=== PATIENT | female | born 2000 | race Caucasian/White ===

== ENCOUNTER 2020-06-27 16:09 | Outpatient (CLI) | payer BC, SELFPAY ==
--- NOTE | ~2020-06-27 | XR_ITS ---
XR wrist LT min 3V 06/27/2020 16:43 INDICATION: Left wrist pain PROCEDURE: 4 views left wrist COMPARISON: No prior studies for comparison. FINDINGS: Fracture, dislocation or subluxation is not identified. The soft tissues appear within norm al limits. No foreign bodies are identified. IMPRESSION: 1: NO ACUTE BONE OR JOINT ABNORMALITY IDENTIFIED. Reviewed, dictated and finalized at location A.
== END 2020-06-27 16:10 | disposition home or self-care (01) ==
PROVIDERS: Visit Provider Pediatrics
DX: M25.532 Pain in left wrist (principal)
CPT/HCPCS: 73110

== ENCOUNTER 2021-08-09 17:43 | Emergency (ER) | payer BC, SELFPAY ==
[2021-08-09 17:50] VITALS: BP 137/77; PULSE 103; RESP 16; TEMP 36.2; O2SAT 99
--- NOTE | 2021-08-09 18:15 | ED.EAR ---
HPI - Ear Problem General Chief complaint: Ear Stated complaint: earache Time Seen by Provider: 08/09/21 18:05 Source: patient Mode of arrival: ambulatory Limitations: no limitations History of Present Illness HPI Narrative: 20-year-old female who presents to [facility] with complaints of sinus drainage for 1-1/2 weeks as well as feeling super stuffy, cough with ear pain starting on Saturday. Patient denies any drainage from her ear or any decreased hearing admits to pain to the left ear. Patient reports that she has been taking Ibuprofen for her discomfort. Patient denies any known fevers chills or sweats, has had Covid vaccinations and also flu shot. 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 MD Complaint: ear pain Location: left ear Duration: constant Severity: moderate Discharge from ear: Reports no Treatment prior to arrival: oral analgesic Related Data Allergies Allergy/AdvReac Type Severity Reaction Status Date / Time No Known Allergies Allergy Verified 12/09/20 11:58 Review of Systems Review of Systems: CONSTITUTIONAL: Denies fever, chills, or sweats. EYES: Denies visual changes, redness, or discharge. ENT: Positive rhinorrhea, congestion,no sore throat, left otalgia. CARDIOVASCULAR: Denies chest pain, palpitations, or edema. RESPIRATORY: Denies any acute cough or dyspnea. GASTROINTESTINAL: Denies abdominal pain, nausea, vomiting, or diarrhea. GENITOURINARY: Denies dysuria or hematuria. SKIN: Denies rash or itching. MUSCULOSKELETAL: Denies back pain, joint pain, or myalgia. NEUROLOGIC: Denies headache, numbness, or weakness. PSYCHIATRIC: Denies anxiety or depression. [facility] Past Medical History Medical History Anxiety Family History Family History Mother Depression Grandparent Alcoholism Hypertension Depression Thyroid disorder Social History Social History Smoking status: Never smoker Alcohol intake: never Substance use: never Gender identity (if verbalized by the patient): Female Comments At time of signature, agree with nursing past medical, surgical, social and family history. There is no relevant family history pertinent to the presenting complaint Exam Narrative: GENERAL: Well-appearing, well-nourished, and in no acute distress. HEAD: Normocephalic, atraumatic. EYES: PERRLA and EOMI. ENT: Nares red with clear rhinorrhea no epistaxis. Mucous membranes moist.TM right ear normal with good light reflex, left ear TM red and bulging, throat pink with no lesions or exudates no tonsil swelling NECK: Supple.no lymphadenopathy CHEST: Clear to auscultation. No respiratory distress.SAO2 99% on room air HEART: Regular rate and rhythm. No murmur heard. Normal peripheral pulses. ABDOMEN: Soft, nontender, nondistended, normal active bowel sounds. EXTREMITIES: Normal range of motion. No edema. SKIN: Warm, dry, no rash. NEURO: No focal deficits. Alert and oriented x3. Course Course Level of Care: Express Care Visit Vital Signs Vital signs: Vital Signs Temperature 36.2 C L 08/09/21 17:50 Pulse Rate 103 H 08/09/21 17:50 Respiratory Rate 16 08/09/21 17:50 Blood Pressure 137/77 08/09/21 17:50 Pulse Oximetry 99 08/09/21 17:50 Temperature 36.2 C L 08/09/21 17:50 Pulse Rate 103 H 08/09/21 17:50 Respiratory Rate 16 08/09/21 17:50 Blood Pressure 137/77 08/09/21 17:50 Pulse Oximetry 99 08/09/21 17:50 Medical Decision Making Differential Diagnosis Differential Diagnosis: otitis media, URI, sinusitis, pharyngitid, viral syndrome. Medical Records Medical records reviewed: Yes I reviewed the external patient's medical records. Vital Signs Vital Signs: Vital Signs Temperature 36.2 C L 08/09/21 17:50 Pulse Rate 103 H 08/09/21 17:50 Re
== END 2021-08-09 18:27 | disposition home or self-care (01) ==
PROVIDERS: Emergency Provider Registered Nurse; PCP Internal Medicine
DX: H66.92 Otitis media, unspecified, left ear (principal); J06.9 Acute upper respiratory infection, unspecified
CPT/HCPCS: 99213; G0463

== ENCOUNTER 2021-11-19 13:50 | Emergency (ER) | payer BC, SELFPAY ==
--- NOTE | 2021-11-19 13:55 | ED.SKABFB ---
HPI - Skin/Abscess/Foreign Bdy General Chief complaint: Skin/Abscess/Foreign Body Stated complaint: RASH Time Seen by Provider: 11/19/21 14:16 Source: patient and RN notes reviewed Mode of arrival: ambulatory Limitations: no limitations History of Present Illness HPI narrative: 21-year-old female presents concern for rash on near her right elbow. Reports an itchy rash that has been there for more than several days. She denies any other rash. Denies any exposure to new products, foods, medicines, plants. She denies swollen lips, swollen tongue, trouble breathing MD complaint: rash Related Data Allergies Allergy/AdvReac Type Severity Reaction Status Date / Time No Known Allergies Allergy Verified 11/19/21 14:15 Review of Systems Review of Systems: CONSTITUTIONAL: Denies malaise, chills, sweats, or fever. EYES: Denies redness, or discharge. ENT: Denies rhinorrhea, congestion, swollen lips, swollen tongue CARDIOVASCULAR: Denies chest pain, palpitations, or edema. RESPIRATORY: Denies cough or dyspnea. SKIN: Reports itchy rash to the right elbow All systems reviewed & are unremarkable except as noted in HPI and below PMFSH Past Medical History Medical History Anxiety Family History Family History Mother Depression Grandparent Alcoholism Hypertension Depression Thyroid disorder Social History Social History Smoking status: Never smoker Alcohol intake: never Substance use: never Gender identity (if verbalized by the patient): Female Comments At time of signature, agree with nursing past medical, surgical, social and family history. There is no relevant family history pertinent to the presenting complaint Exam Narrative: GENERAL: Well-appearing, well-nourished, and in no acute distress. HEAD: Normocephalic, atraumatic. EYES: PERRLA, conjunctivae clear, and EOMI. ENT: Mucous membranes moist. NECK: Supple. No lymphadenopathy CHEST: Clear to auscultation. No respiratory distress. HEART: Regular rate and rhythm. SKIN: Warm, dry. 1.5 cm diameter annular erythematous plaque noted to the right elbow area with 1 small satellite lesion NEURO: Alert and oriented x3. PSYCH: Normal mood and affect Course Course Emergency Course: Patient is aware of diagnosis, understands and agrees to treatment plan. Anticipatory guidance given. Patient agrees to follow-up as directed and is aware of reasons to seek care at the emergency department. Portions of this record may have been created with voice recognition software Level of Care: Express Care Visit Vital Signs Vital signs: Reviewed. MDM - Skin/Abscess/Foreign Bdy MDM Narrative Medical decision making narrative: Does not appear at this time to be erythema multiforme, bullous, SJS, TEN; no evidence at this time to suggest RMSF, endocarditis or Lyme disease; patient looks well, nontoxic and is tolerating oral intake; no neurologic signs or symptoms; no headache, photophobia or neck pain; afebrile; appropriate for initial outpatient treatment; discussed the importance of follow-up, patient agrees; question, viral exanthema, contact dermatitis, allergic dermatitis, eczema, urticaria, tinea. No soft palate or uvula edema, no tongue, lip edema or other mucosal involvement, no respiratory compromise, no stridor, no wheezing, no wheezing, no history of syncope, no hypotension, no nausea, vomiting, or diarrhea. Instructed patient to go to nearest ER immediately for any worsening symptoms including but not limited to: fever, spreading rash, pain, sore throat, headache, dizziness, chest pain, trouble breathing, or any symptoms concerning to the patient. Critical Care Time Critical Care Time Critical Care Time: No Discharge Plan Discharge Clinical Impression: Tinea corporis Patient Disposit
[2021-11-19 13:59] VITALS: BP 149/86; PULSE 96; RESP 16; TEMP 37.4; O2SAT 99
== END 2021-11-19 14:16 | disposition home or self-care (01) ==
PROVIDERS: Emergency Provider Nurse Practitioner
DX: B35.4 Tinea corporis (principal)
CPT/HCPCS: 99213; G0463

== ENCOUNTER 2021-11-27 10:57 | Emergency (ER) | payer BC, SELFPAY ==
[2021-11-27 11:04] VITALS: BP 139/85; PULSE 91; RESP 16; TEMP 36.1; O2SAT 99
--- NOTE | 2021-11-27 11:17 | ED.SKABFB ---
HPI - Skin/Abscess/Foreign Bdy General Chief complaint: Skin/Abscess/Foreign Body Stated complaint: body rash Time Seen by Provider: 11/27/21 11:20 Source: patient and RN notes reviewed Mode of arrival: ambulatory Limitations: no limitations History of Present Illness HPI narrative: 21-year-old female presents with an itchy spreading rash. She reports she is currently using antifungal cream for rash on her left elbow. She reports that that rash is improving. However, she reports the rash has spread to both of her thighs. She reports the rash in that area seems worse than the first rash. There is multiple areas and she had a blister with fluid in it. Reports she has been using bandages, however the bandages are irritating her skin. She reports her insurance would not cover the prescription antifungal cream so she has been using an [id number] MD complaint: rash Related Data Allergies Allergy/AdvReac Type Severity Reaction Status Date / Time No Known Allergies Allergy Verified 11/27/21 11:06 Review of Systems Review of Systems: CONSTITUTIONAL: Denies malaise, chills, sweats, or fever. EYES: Denies redness, or discharge. ENT: Denies rhinorrhea, congestion, swollen lips, swollen tongue CARDIOVASCULAR: Denies chest pain, palpitations, or edema. RESPIRATORY: Denies cough or dyspnea. GASTROINTESTINAL: Denies abdominal pain, nausea, vomiting SKIN: Reports itchy rash MUSCULOSKELETAL: Denies joint pain or myalgia. NEUROLOGIC: Denies headache. All systems reviewed & are unremarkable except as noted in HPI and below PMFSH Past Medical History Medical History Anxiety Family History Family History Mother Depression Grandparent Alcoholism Hypertension Depression Thyroid disorder Social History Social History Smoking status: Never smoker Alcohol intake: never Substance use: never Gender identity (if verbalized by the patient): Female Comments At time of signature, agree with nursing past medical, surgical, social and family history. There is no relevant family history pertinent to the presenting complaint Exam Narrative: GENERAL: Well-appearing, well-nourished, and in no acute distress. HEAD: Normocephalic, atraumatic. EYES: PERRLA, conjunctivae clear ENT: Mucous membranes moist. NECK: Supple. No lymphadenopathy CHEST: Clear to auscultation. No respiratory distress. HEART: Regular rate and rhythm. SKIN: Warm, dry. Small annular pink patch of plaque on the left elbow that is resolving from previous visit. A patch of annular erythematous plaque, some discrete, some confluent noted to bilateral thighs, each entire area is approximately 11 cm x 6 cm NEURO: Alert and oriented x3. PSYCH: Normal mood and affect Course Course Emergency Course: Discussed with patient that given the spread of the rash and the worsening rash on the thighs we will use an oral option for treatment, advice given on prevention of spreading of the rash and new prescription strength cream prescribed. Patient appears to be wearing bandages that are irritating her skin, advised patient how to bandage the rash without using adhesive Patient is aware of diagnosis, understands and agrees to treatment plan. Anticipatory guidance given. Patient agrees to follow-up as directed and is aware of reasons to seek care at the emergency department. Portions of this record may have been created with voice recognition software Level of Care: Express Care Visit Vital Signs Vital signs: Vital Signs Temperature 97 F L 11/27/21 11:04 Pulse Rate 91 11/27/21 11:04 Respiratory Rate 16 11/27/21 11:04 Blood Pressure 139/85 11/27/21 11:04 Pulse Oximetry 99 11/27/21 11:04 Temperature 97 F L 11/27/21 11:04 Pulse Rate 91 11/27/21 11:04 Respiratory Rate 16
== END 2021-11-27 11:42 | disposition home or self-care (01) ==
PROVIDERS: Emergency Provider Nurse Practitioner; PCP Family Medicine
DX: B35.4 Tinea corporis (principal)
CPT/HCPCS: 99213; G0463

== ENCOUNTER 2022-01-12 09:37 | Outpatient (CLI) | payer BC, SELFPAY ==
[2022-01-12 19:31] LABS: Alanine Aminotransferase 30 U/L (6-35); Albumin Level 4.7 g/dL (3.5-5.1); Alkaline Phosphatase 76 U/L (38-126); Anion Gap 13 mmol/L (8-16); Aspartate Amino Transferase 27 U/L (14-36); Bilirubin,Total 0.5 mg/dL (0.2-1.3); Blood Urea Nitrogen 8 mg/dL (7-17); Calcium 9.1 mg/dL (8.4-10.2); Carbon Dioxide 23 mmol/L (22-30); Chloride 104 mmol/L (98-107); Cholesterol 209 mg/dL (0-200); Estimated Glomerular Filt Rate > 60; Glucose 99 mg/dL (65-110); HDL Direct 43 mg/dL; Potassium 4.1 mmol/L (3.4-5.0); Sodium 140 mmol/L (137-145); Triglycerides 142 mg/dL (<150)
[2022-01-12 19:42] LABS: LDL Cholesterol Direct 138 mg/dL
== END 2022-01-12 09:38 | disposition home or self-care (01) ==
LOC: ANHGOSHLAB 09:40
PROVIDERS: PCP Family Medicine; Visit Provider Family Medicine
DX: Z13.228 Encounter for screening for other metabolic disorders (principal); Z13.220 Encounter for screening for lipoid disorders; Z13.29 Encounter for screening for other suspected endocrine disorder
CPT/HCPCS: 36415; 80053; 80061; 84443

== ENCOUNTER 2023-09-23 12:14 | Emergency (ER) | payer OTHER, SELFPAY ==
--- NOTE | ~2023-09-23 | XR_ITS ---
Right ankle Technique: AP, oblique, and lateral views were obtained. Clinical History: Injury Findings: No acute fracture or dislocation is seen. Osseous alignment is anatomic. Ankle mortise and other visualized joint spaces are preserved. Soft tissues are otherwise unremarkable. Impression: Unremarkable right ankle. Reviewed, dictated and finalized at location . Impression: Unremarkable right ankle.
[2023-09-23 12:23] VITALS: BP 123/79; PULSE 107; RESP 16; TEMP 36.6; O2SAT 100
--- NOTE | 2023-09-23 12:35 | ED.UPPEXIN ---
HPI - Extremity Injury (Upper) General Chief Complaint: Extremity Injury, Upper Stated Complaint: Injured Right Ankle Time Seen by Provider: 09/23/23 12:31 Source: patient and RN notes reviewed Mode of arrival: ambulatory Limitations: no limitations History of Present Illness HPI narrative: Patient presents today complaining of right ankle pain. Five days ago she tripped on a curb and rolled her ankle. Denies numbness or tingling. Occasionally the pain radiates up her leg from the lateral ankle. Currently rates her pain 4/10 and has been taking ibuprofen with mild relief. She has been ambulatory. Related Data Allergies Allergy/AdvReac Type Severity Reaction Status Date / Time No Known Allergies Allergy Verified 09/23/23 12:22 Review of Systems Review of Systems: CONSTITUTIONAL: Denies body aches, fever, chills, or sweats. EYES: Denies visual changes, redness, or discharge. ENT: Denies rhinorrhea, congestion, sore throat, or otalgia. CARDIOVASCULAR: Denies chest pain, palpitations, or edema. RESPIRATORY: Denies cough or dyspnea. GASTROINTESTINAL: Denies abdominal pain, nausea, vomiting, or diarrhea. GENITOURINARY: Denies dysuria or hematuria. SKIN: Denies rash, itching, or wounds. MUSCULOSKELETAL: Denies back pain, or myalgia.+ right ankle pain NEUROLOGIC: Denies headache, numbness, tingling, or weakness. PSYCH: Denies depression or anxiety. REPLACED BY [facility] Past Medical History Medical History Anxiety Family History Family History Mother Depression Grandparent Alcoholism Hypertension Depression Thyroid disorder Social History Social History Smoking status: Never smoker Alcohol intake: current Drinks per week: 2 Substance use: never Lack of Transportation: No Lack of Food: Never True Current Housing: I Have Housing Concerned About Future Housing: No Difficulty Paying Gas/Electric Bills: No Difficulty Paying for Meds: No Currently Unemployed: No Education: High School Diploma/GED Difficulty w/ Childcare or Family Care: No Living arrangements: with family Occupation/Education: student Gender identity (if verbalized by the patient): Female Comments At time of signature, I have reviewed and agree with nursing past medical, surgical, social and family history unless otherwise noted. Please see nursing chart for further information. There is no relevant family history pertinent to the presenting complaint Exam Narrative: GENERAL: Well-appearing, well-nourished, and in no acute distress. HEAD: Normocephalic, atraumatic. EYES: EOMI. No redness or drainage. Conjunctivae normal. ENT: Mucous membranes pink and moist. NECK: Normal AROM. CHEST: No respiratory distress. EXTREMITIES: Right ankle: Tenderness laterally with mild edema. No tenderness medially or anteriorly. Pain with AROM in all directions. Distal sensation intact. Capillary refill normal. Pedal pulse normal. SKIN: Warm, dry, no rash. Capillary refill normal. Normal skin turgor. NEURO: No focal deficits. Alert and oriented x3. Gait steady. PSYCH: Normal affect. No signs of depression or anxiety. Course Course Level of Care: Express Care Visit Vital Signs Vital signs: Vital Signs Temperature 98 F 09/23/23 12:23 Pulse Rate 107 H 09/23/23 12:23 Respiratory Rate 16 09/23/23 12:23 Blood Pressure 123/79 09/23/23 12:23 Pulse Oximetry 100 09/23/23 12:23 Temperature 98 F 09/23/23 12:23 Pulse Rate 107 H 09/23/23 12:23 Respiratory Rate 16 09/23/23 12:23 Blood Pressure 123/79 09/23/23 12:23 Pulse Oximetry 100 09/23/23 12:23 Reviewed MDM - Extremity Injury (Upper) MDM Narrative Medical decision making narrative: Ankle x-ray negative for fracture. Patient has her own ankle brace
== END 2023-09-23 12:42 | disposition home or self-care (01) ==
PROVIDERS: Emergency Provider Nurse Practitioner; PCP Family Medicine
DX: S93.401A Sprain of unspecified ligament of right ankle, initial encounter (principal); X50.9XXA Other and unspecified overexertion or strenuous movements or postures, initial encounter
CPT/HCPCS: 73610; 99213; G0463

== ENCOUNTER 2023-12-07 10:49 | Emergency (ER) | payer OTHER, SELFPAY ==
[2023-12-07 11:57] VITALS: BP 125/93; PULSE 102; RESP 16; TEMP 36.9; O2SAT 98
--- NOTE | 2023-12-07 11:58 | ED.URI ---
HPI - URI/Sore Throat General Chief Complaint: Upper Respiratory Infection Stated Complaint: Sore Throat/Ear Pain Time Seen by Provider: 12/07/23 11:59 Source: patient Mode of arrival: ambulatory Limitations: no limitations History of Present Illness HPI Narrative: 23-year-old female presents with complaint of sore throat, congestion, fatigue for 5 days. Afebrile. Denies nausea vomiting. All systems reviewed and negative except as noted above. Related Data Allergies Allergy/AdvReac Type Severity Reaction Status Date / Time No Known Allergies Allergy Verified 11/13/23 11:02 Review of Systems Review of Systems: CONSTITUTIONAL: Denies fever, chills, or sweats. EYES: Denies visual changes, redness, or discharge. ENT: Reports rhinorrhea, congestion, sore throat. Denies otalgia. CARDIOVASCULAR: Denies chest pain, palpitations, or edema. RESPIRATORY: Denies cough or dyspnea. GASTROINTESTINAL: Denies abdominal pain, nausea, vomiting, or diarrhea. GENITOURINARY: Denies dysuria or hematuria. SKIN: Denies rash or itching. MUSCULOSKELETAL: Denies back pain, joint pain, or myalgia. NEUROLOGIC: Denies headache, numbness, or weakness. PSYCHIATRIC: Denies anxiety or depression. All other systems reviewed are negative, except as documented in HPI. [facility] Past Medical History Medical History Anxiety Family History Family History Mother Depression Grandparent Alcoholism Hypertension Depression Thyroid disorder Social History Social History Smoking status: Never smoker Alcohol intake: current Drinks per week: 2 Substance use: never Lack of Transportation: No Lack of Food: Never True Current Housing: I Have Housing Concerned About Future Housing: No Difficulty Paying Gas/Electric Bills: No Difficulty Paying for Meds: No Currently Unemployed: No Education: High School Diploma/GED Difficulty w/ Childcare or Family Care: No Living arrangements: with family Occupation/Education: student Gender identity (if verbalized by the patient): Female Comments At time of signature, agree with nursing past medical, surgical, social and family history. There is no relevant family history pertinent to the presenting complaint. Exam Narrative: GENERAL: This is a well-nourished, well-developed patient, in no apparent distress. HEAD: normocephalic, atraumatic. EYES: PERRL. Sclera clear/white. Vision is grossly intact. EARS: External ears normal, auditory canals clear and without drainage, TMs normal without perforation. Hearing grossly intact. NOSE: External nose normal with no obvious nasal discharge, nares without redness, no rhinorrhea. THROAT: Mucous membranes moist, erythema with mild swelling. Tonsils 1+ bilaterally without exudates NECK: Neck supple, non-tender without lymphadenopathy, masses or thyromegaly. CARDIOVASCULAR: Regular rate and rhythm without murmurs, gallops, or rubs. RESPIRATORY: Clear to auscultation. Breath sounds equal bilaterally. No wheezes, rales, or rhonchi. SKIN: warm, Dry, intact with no suspicious lesions or rash, good texture and turgor. NEURO: awake, alert, and oriented to person, place and time. There were no obvious focal neurologic abnormalities. EXTREMITIES: No joint tenderness, effusion, or edema noted. Course Course Level of Care: Express Care Visit Vital Signs Vital signs: Vital Signs Temperature 36.9 C 12/07/23 11:57 Pulse Rate 102 H 12/07/23 11:57 Respiratory Rate 16 12/07/23 11:57 Blood Pressure 125/93 H 12/07/23 11:57 Pulse Oximetry 98 12/07/23 11:57 Temperature 36.9 C 12/07/23 11:57 Pulse Rate 102 H 12/07/23 11:57 Respiratory Rate 16 12/07/23 11:57 Blood Pressure 125/93 H 12/07/23 11:57 Pulse Oximetry 98 12/07/23 11:57 Reviewed MDM - URI/Sor
[2023-12-09 14:28] LABS: EDSTREPNEGPOS1 Positive (Negative)
== END 2023-12-07 12:09 | disposition home or self-care (01) ==
PROVIDERS: Emergency Provider Nurse Practitioner Family; PCP Family Medicine
DX: J02.0 Streptococcal pharyngitis (principal)
CPT/HCPCS: 87880; 99213; G0463

== ENCOUNTER 2024-02-07 08:02 | Outpatient (CLI) | payer OTHER, SELFPAY | END 2024-02-07 08:03 | disposition home or self-care (01) | LOC: ANHAUDIO 08:03 | PROVIDERS: PCP Family Medicine; Visit Provider Otolaryngology | DX: R42 Dizziness and giddiness (principal); Z96.22 Myringotomy tube(s) status; H92.11 Otorrhea, right ear; H74.8X2 Other specified disorders of left middle ear and mastoid; H90.12 Conductive hearing loss, unilateral, left ear, with unrestricted hearing on the contralateral side; H66.92 Otitis media, unspecified, left ear | CPT/HCPCS: 92567 ==

== ENCOUNTER 2024-02-12 07:59 | Outpatient (CLI) | payer OTHER, SELFPAY | END 2024-02-12 08:00 | disposition home or self-care (01) | LOC: ANHAUDIO 08:00 | PROVIDERS: PCP Family Medicine; Visit Provider Otolaryngology | DX: H90.12 Conductive hearing loss, unilateral, left ear, with unrestricted hearing on the contralateral side (principal); H66.92 Otitis media, unspecified, left ear | CPT/HCPCS: 92557; 92567 ==

== ENCOUNTER 2024-04-27 15:05 | Emergency (ER) | payer OTHER, SELFPAY ==
[2024-04-27 15:17] VITALS: BP 143/92; PULSE 109; RESP 18; TEMP 36.6; O2SAT 100
--- NOTE | 2024-04-27 15:38 | ED_ITS ---
HPI - URI/Sore Throat General Chief Complaint: Upper Respiratory Infection Stated Complaint: Upper Respiratory Symptoms Time Seen by Provider: 04/27/24 15:25 Source: patient Mode of arrival: ambulatory Limitations: no limitations History of Present Illness HPI Narrative: Jany is a 23-year-old female patient presenting to the clinic today with complaints of cough, nasal congestion, and sore throat x2 days. She denies any known fever chills. Took an at-home COVID test this morning and it was negative. Symptoms started around Saturday night. MD elicited complaint: sore throat and nasal congestion Related Data Allergies Allergy/AdvReac Type Severity Reaction Status Date / Time No Known Allergies Allergy Verified 04/27/24 15:36 Review of Systems Review of Systems: Pertinent positives per HPI. Patient denies any fever, chills, rash, headache, visual changes, dizziness, shortness of breath, chest pain, palpitations, nausea, vomiting, diarrhea, constipation, abdominal pain, or any urinary issues. PMFSH Past Medical History Medical History Anxiety Family History Family History Mother Depression Grandparent Alcoholism Hypertension Depression Thyroid disorder Social History Social History Smoking status: Never smoker Alcohol intake: current Drinks per week: 2 Substance use: never Lack of Transportation: No Lack of Food: Never True Current Housing: I Have Housing Concerned About Future Housing: No Difficulty Paying Gas/Electric Bills: No Difficulty Paying for Meds: No Currently Unemployed: No Education: High School Diploma/GED Difficulty w/ Childcare or Family Care: No Living arrangements: with family Occupation/Education: student Gender identity (if verbalized by the patient): Female Comments At the time of my signature, I reviewed and agree with the nursing past medical, surgical, social, and family history. There is no relevant family history pertinent to the patient complaint. Exam Narrative: General: Well-developed, well nourished, in no apparent distress Head: Normocephalic, atraumatic Eyes: Pupils equally round and reactive to light bilaterally, EOM intact, sclera and conjunctive clear, no discharge, lids normal Ears: TMs intact and just, ear canals clear, no drainage, grossly hearing normal. Nose: Nares patent, clear nasal discharge, no inflammation, no sinus tenderness. Mouth: Oral pharynx without lesions or masses, good dentition, MMM. Postnasal drip Neck: Supple, trachea midline, no enlargement of anterior or posterior cervical nodes, no thyroid masses or goiter palpable. Cardio: Regular rate and rhythm, s1 and s2 normal, no murmur appreciated. Resp: Clear to auscultation bilaterally, no rhonchi, rales, wheezing or rubs Course Course Emergency Course: Portions of this record may have been created with voice recognition software. Level of Care: Express Care Visit Vital Signs Vital signs: Vital Signs Temperature 36.6 C 04/27/24 15:17 Pulse Rate 109 H 04/27/24 15:17 Respiratory Rate 18 04/27/24 15:17 Blood Pressure 143/92 H 04/27/24 15:17 Pulse Oximetry 100 04/27/24 15:17 Oxygen Delivery Room Air 04/27/24 15:17 Temperature 36.6 C 04/27/24 15:17 Pulse Rate 109 H 04/27/24 15:17 Respiratory Rate 18 04/27/24 15:17 Blood Pressure 143/92 H 04/27/24 15:17 Pulse Oximetry 100 04/27/24 15:17 Oxygen Delivery Room Air 04/27/24 15:17 Vital signs reviewed MDM - URI/Sore Throat MDM Narrative Medical decision making narrative: At the time of visit patient is resting comfortably on the exam table. Patient appears to be nontoxic. Labs: Strep test was performed and negative in the clinic today. We will send strep for culture. Plan: I suspect patient has URI/pharyngitis. Supportive measures were discussed with the patient and they voiced understanding discharge instructions and agrees to treatment plan. Return precautions reviewed Differential Diagnosis Differential diagnosis: Likely upper respiratory infection, otitis media, sinusitis, viral infection, bronchitis, influenza, pharyngitis and other (COVID) Discharge Plan Discharge Clinical Impression: URI (upper respiratory infection) Qualifiers: URI type: unspecified URI Qualified Code(s): J06.9 - Acute upper respiratory infection, unspecified Pharyngitis, acute Qualifiers: Pharyngitis/tonsillitis etiology: unspecified etiology Qualified Code(s): J02.9 - Acute pharyngitis, unspecified Patient Disposition: Home, Self-Care Condition: Stable Instructions: Antibiotic Form, Pharyngitis (ED), Cold Symptoms (ED) Additional Instructions: Strep test was negative in the clinic today. We will send strep for culture Increase fluids and stay well hydrated Tylenol/motrin for pain/fever Flonase and OTC antihistamines as directed Vicks vapor rub to open sinuses Sinus rinses for congestion Cepacol spray, cough drops, throat lozenges, warm tea with honey/lemon, gargle salt water to soothe throat BRAT diet for diarrhea Clear liquids x 24 hours then advance as tolerated for nausea/vomiting Go to the ED if you develop a worsening in your condition- high fever not controlled by Tylenol or Motrin, dehydration, weakness, lethargy, shortness of breath, or chest pain. Follow up with your PCP in 3-5 days if symptoms persist. Patient Language: Niuean Prescriptions: No Action azelastine 137 mcg (0.1 %) spray,non-aerosol 137 mcg intranasal . Q.h.s. Qty: 30 2RF Rx Instructions: administer into each nostril 1 or 2 sprays each nostril q.h.s. at bedtime norgestimate-ethinyl estradiol [Estarylla] 0.25-35 mg-mcg tablet 1 tablet PO DAILY Qty: 84 1RF Follow-up/Referrals: PHYSICIAN,SOLUTIONS SPECIALIST [Primary Care Provider] - Time of Disposition: 15:42 Quality NIHSS Nursing Documentation ED NIHSS nursing documentation: reviewed/agree
[2024-04-27 15:48] LABS: EDSTREPNEGPOS1 Negative (Negative)
== END 2024-04-27 15:50 | disposition home or self-care (01) ==
PROVIDERS: Emergency Provider Nurse Practitioner Family
DX: J06.9 Acute upper respiratory infection, unspecified (principal); J02.9 Acute pharyngitis, unspecified
CPT/HCPCS: 87081; 87880; 99213; G0463